=== PATIENT | male | born 1960 | race Caucasian/White ===

== ENCOUNTER 2023-07-03 09:47 | Day surgery (SDC) | payer OTHER ==
[~2023-07-03] VITALS: Ht 175.3 cm; Wt 62.1 kg
[~2023-07-03 09:47] MED LIST: BSS with VANC/TOB/EPI for EYE CASES IR ONE; CYCLOPENTOLATE 1% OPHTH SOLN 2ML BTL OD SCH; MIDAZOLAM INJ 2MG/2ML VIAL As Ordered ONE; PHENYLEPHRINE 10% OPHTH SOL 5ML OD PRN; fentaNYL 100 MCG/2 ML INJECTION As Ordered ONE
[2023-07-03] MEDS: LIDOCAINE 3.5 % 1ML OPHTH TOPICAL GEL OU ONE (11:30)
[2023-07-03] MEDS: PHENYLEPHRINE 2.5% OPHTH SOL 2ML OD SCH (11:30)
[2023-07-03] MEDS: TROPICAMIDE 1% OPHTH SOLN 15ML OD SCH (11:31)
[2023-07-03] MEDS: OFLOXACIN 0.3 % (OCUFLOX) OPTH SOL 5ML OD ONE (11:31)
[2023-07-03] MEDS: ATROPINE SULFATE 1% OPHTH SOLN 2ML BTL OD SCH (11:31)
[2023-07-03] MEDS: LIDOCAINE 1% SDV 5ML VIAL As Ordered ONE (12:37)
[2023-07-03] MEDS: BSS IRRIG/VANCO(10MG)/TOBRA(5MG)/EPINEPH(1:1000-0.5CC)500ML BAG-ORONLY As Ordered ONE (12:37)
[2023-07-03] MEDS: CEFUROXIME 1MG/0.1ML INTRACAMERAL INJ As Ordered ONE (12:37)
[2023-07-03] MEDS ORDERED: VISCOAT 40-30MG/ML 0.5ML SYRINGE As Ordered ONE (12:39)
[2023-07-03 12:55] VITALS: BP 110/67; TEMP 97; O2SAT 100
== END 2023-07-03 16:51 | disposition home or self-care (01) ==
LOC: M SDC 09:47
PROVIDERS: ATTEND Ophthalmology
DX: H25.11 Age-related nuclear cataract, right eye (principal); H57.03 Miosis; J44.9 Chronic obstructive pulmonary disease, unspecified; F17.210 Nicotine dependence, cigarettes, uncomplicated
CPT/HCPCS: 66982; 92015; J0697; J2250; J3010; V2632